=== PATIENT | male | born 1980 | race Caucasian/White ===

== ENCOUNTER 2018-08-09 16:13 | Emergency (ER) | payer OTHER ==
[~2018-08-09] VITALS: Ht 193 cm; Wt 106.6 kg
--- NOTE | 2018-08-09 16:35 | NUR ---
PT A/OX4, PRESENTS TO THE ER W/ A STAFF MEMBER FROM A REHAB FACILITY, C/O GENERALIZED WEAKNESS AND NAUSEA. 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 VS WNL ALTHOUGH PT IS BRADYCARDIC AT 45 BPM, ER MD AWARE. PT REPORTS HE LAST USED IV HEROIN AND XANAX APPROXIMATELY 3 DAYS AGO. NO RESPIRATORY DISTRESS NOTED. PT DENIES PAIN, C/P, SOB, VOMITING/DIARRHEA, HEADACHE. ER MD AT BEDSIDE FOR MSE.
[2018-08-09] MEDS ORDERED: IV NORMAL SALINE 1000 ML BAG IV ONE (16:45)
[2018-08-09] MEDS ORDERED: PEPTO BISMOL (16:58)
[2018-08-09] MEDS ORDERED: HYDR25CA PO (16:58)
[2018-08-09] MEDS ORDERED: LEVE500T9 PO (16:58)
[2018-08-09] MEDS ORDERED: VALIUM PO (16:58)
[2018-08-09] MEDS ORDERED: [UNRECOGNIZED DRUG - OTHER] (16:58)
[2018-08-09] MEDS ORDERED: IBUP-1957 PO (16:58)
[2018-08-09] MEDS ORDERED: METH500T PO (16:58)
[2018-08-09] MEDS ORDERED: TUMS (16:58)
[2018-08-09] MEDS ORDERED: DOCU100C36 PO (16:58)
[2018-08-09] MEDS ORDERED: ACET-2154 PO (16:58)
[2018-08-09] MEDS ORDERED: MELATONIN (16:58)
[2018-08-09] MEDS ORDERED: CLON0.1T PO (16:58)
[2018-08-09] MEDS ORDERED: QUET100T PO (16:58)
[2018-08-09] MEDS ORDERED: MILK OF MAGNESIA (16:58)
[2018-08-09] MEDS ORDERED: ONDA4TAB5 PO (16:58)
[2018-08-09 17:11] LABS: BASOPHILS # (AUTO) 0.1 K/uL (0.0-8.0); BASOPHILS % (AUTO) 0.8 % (0.0-2.0); EOSINOPHILS % (AUTO) 0.2 % (0.0-7.0); HEMATOCRIT 41.2 % (36.7-47.1); HEMOGLOBIN 13.5 g/dL (12.5-16.3); LYMPHOCYTES # (AUTO) 1.4 K/uL (20.0-40.0); LYMPHOCYTES % (AUTO) 18.5 % (20.5-51.5); MEAN CORPUSCULAR HEMOGLOBIN 27.9 uug (23.8-33.4); MEAN CORPUSCULAR HGB CONC 33 g/dL (32.5-36.3); MEAN CORPUSCULAR VOLUME 85.1 fL (73.0-96.2); MONOCYTES # (AUTO) 0.3 K/uL (2.0-10.0); MONOCYTES % (AUTO) 3.4 % (0.0-11.0); NEUTROPHILS # (AUTO) 5.9 K/uL (1.8-8.9); NEUTROPHILS % (AUTO) 77.1 % (38.5-71.5); PLATELET COUNT (AUTO) 209 K/uL (152-348); RED BLOOD CELL COUNT(AUTO) 4.84 MIL/uL (4.06-5.63); WHITE BLOOD COUNT (AUTO) 7.7 K/uL (3.6-10.2)
--- NOTE | 2018-08-09 17:17 | NUR ---
20G IV ACCESS IN REJ ESTABLISHED BY ME. ATTEMPTED BY ER , I WAS SUPERVISED BY ER (DR. MODI) ER WAS UNSUCCESSFUL IN HIS ATTEMPT.
[2018-08-09 17:19] LABS: CREATININE 1.1 mg/dL (0.6-1.3); POTASSIUM 3.9 mmol/L (3.5-5.1)
[2018-08-09 17:31] LABS: BILIRUBIN,DIRECT 0.2 mg/dL (0.0-0.2); BILIRUBIN,TOTAL 0.5 mg/dL (0.2-1.0); TOTAL PROTEIN, SERUM 7.4 g/dL (6.4-8.2)
--- NOTE | 2018-08-09 17:33 | NUR ---
RIPENING ROOM ATTENDANT AT BEDSIDE.
[2018-08-09] MEDS ORDERED: IV NORMAL SALINE 250 ML IV ONE (17:34)
[2018-08-09] MEDS ORDERED: SWABABLE VALVE TRANSFER SET EA MC ONE (17:34)
[2018-08-09] MEDS ORDERED: IOHEXOL 300MG/ML 100 ML INFUS..BTL ONE (17:34)
[2018-08-09] MEDS ORDERED: NORMAL SALINE FLUSH 10 ML DISP.SYRIN ONE (17:34)
--- NOTE | 2018-08-09 17:42 | NUR ---
PT TAKEN TO RADIOLOGY FOR CT SCAN.
--- NOTE | 2018-08-09 17:54 | NUR ---
PT BACK IN ER FROM RADIOLOGY.
--- NOTE | 2018-08-09 18:25 | NUR ---
ADMITTING REPORT GIVEN TO LAMONT FALCON.
--- NOTE | 2018-08-09 18:28 | NUR ---
PT REMOVED 20G IV ACCESS IN REJ. STATED "IT IRRITATED ME". NO BLEEDING NOTED.
[2018-08-09] MEDS ORDERED: ONDANSETRON 4 MG/2 ML VIAL ONE (18:29)
[2018-08-09] MEDS ORDERED: ONDANSETRON 4 MG/2 ML VIAL IV ONE (18:30)
--- NOTE | 2018-08-09 18:32 | NUR ---
Patient does not wish to proceed with medical care recommended by Dr. MODI. Patient given information related to possible complications, up to and including , which could occur as a result of leaving the hospital at this time. Patient verbalizes understanding of risks involved due to leaving against medical advice. Patient has signed AMA form.
== END 2018-08-09 18:34 | disposition left against medical advice (07) ==
LOC: ER 16:23
DX: R42 Dizziness and giddiness (principal); R00.1 Bradycardia, unspecified; F19.90 Other psychoactive substance use, unspecified, uncomplicated; F17.200 Nicotine dependence, unspecified, uncomplicated; Z79.1 Long term (current) use of non-steroidal anti-inflammatories (NSAID); Z79.899 Other long term (current) drug therapy
CPT/HCPCS: 36415; 70450; 71045; 80048; 80076; 83735; 83880; 84484; 85025; 93005; 99284; J2405; Q9967; 70030-TC; A4663; J3490; J7030; J7050